=== PATIENT | female | born 1955 | race Caucasian/White ===

== ENCOUNTER → 2016-04-09 | Outpatient (CLI) | payer BC ==
[~2016-04-09] MED LIST: ACET325T96 PO; ASMIN/30 INH; ASPI81TA28 PO; CLOP1TAB15 PO; COEN1CAP7 PO; CYAN10005 PO; IBUP-103 PO; METO-217 PO; NTRGSL/4 UT; PANT40TA PO; ROSU40TA PO; SERT100T PO
== END | disposition home or self-care (01) ==
LOC: C.RC 16:28
PROVIDERS: ATTEND Internal Medicine Pulmonary Disease
DX: G47.33 Obstructive sleep apnea (adult) (pediatric) (principal)

== ENCOUNTER → 2016-05-03 | Outpatient (CLI) | payer BC, OTHER ==
[2016-05-03 13:31] LABS: HEMATOCRIT 41.6 % (37-47); MEAN CELL VOLUME 81.7 fL (80-100); MEAN CORPUSCULAR HEMOGLOBIN 25.7 pg (25-34); MEAN CORPUSCULAR HGB CONC 31.5 g/dl (32-36); MEAN PLATELET VOLUME 10.5 fL (7.4-10.4); PLATELET COUNT 288 K/uL (130-400); RED BLOOD COUNT 5.09 M/uL (4.2-5.4)
[2016-05-03 13:42] LABS: ALT/SGPT 23 U/L (12-78); BLOOD UREA NITROGEN 19 mg/dl (7-18); BUN/CREATININE RATIO 25.3 (10-20); CALCIUM 9.1 mg/dl (8.5-10.1); CARBON DIOXIDE 28 mmol/L (21-32); CHLORIDE 105 mmol/L (98-107); CREATININE 0.76 mg/dl (0.60-1.20); GLUCOSE 94 mg/dl (70-99); POTASSIUM 4.2 mmol/L (3.5-5.1); SODIUM 141 mmol/L (136-145)
[2016-05-03 13:45] LABS: ALB/GLOB RATIO 0.9 (0.9-2); ALKALINE PHOSPHATASE 64 U/L (45-117); AST/SGOT 14 U/L (15-37); CHOLESTEROL 137 mg/dl (0-200); CHOLESTEROL/HDL RATIO 2.5; HDL CHOLESTEROL 55 mg/dl; LDL CHOLESTEROL CALCULATED 61 mg/dl; TRIGLYCERIDES 107 mg/dl (0-150); VERY LOW DENSITY LIPOPROT CALC 21 mg/dl
== END | disposition home or self-care (01) ==
LOC: C.LABMFLN 09:10
PROVIDERS: ATTEND Internal Medicine Cardiovascular Disease
DX: I10 Essential (primary) hypertension (principal); E78.5 Hyperlipidemia, unspecified; I25.10 Atherosclerotic heart disease of native coronary artery without angina pectoris; E66.9 Obesity, unspecified

== ENCOUNTER → 2016-11-20 | Outpatient (CLI) | payer BC ==
[2016-11-20 12:07] LABS: BASO % 0.3 %; BASO ABS # 0.02 K/uL (0-0.2); COMPLETE YES; EOS % 1.6 %; IG% 0.4 %; LYMPH % 24.7 %; LYMPH ABS # 1.67 K/uL (1.2-3.4); MEAN CELL VOLUME 83.2 fL (80-100); MEAN CORPUSCULAR HEMOGLOBIN 25.7 pg (25-34); MEAN PLATELET VOLUME 10.2 fL (7.4-10.4); MONO % 5.5 %; NEUT % 67.5 %; PLATELET COUNT 258 K/uL (130-400); RED BLOOD COUNT 5.05 M/uL (4.2-5.4); WHITE BLOOD COUNT 6.76 K/uL (4.8-10.8)
[2016-11-20 12:20] LABS: ESTIMATED AVERAGE GLUCOSE 126 mg/dl; HA1C FLAG Normal (Normal)
[2016-11-20 12:27] LABS: ALT/SGPT 27 U/L (12-78); AST/SGOT 16 U/L (15-37); BLOOD UREA NITROGEN 17 mg/dl (7-18); CALCIUM 9.3 mg/dl (8.5-10.1); CARBON DIOXIDE 31 mmol/L (21-32); CHLORIDE 104 mmol/L (98-107); CHOLESTEROL 152 mg/dl (0-200); CREATININE 0.75 mg/dl (0.60-1.20); GLUCOSE 106 mg/dl (70-99); POTASSIUM 4.4 mmol/L (3.5-5.1); SODIUM 138 mmol/L (136-145)
[2016-11-20 12:30] LABS: CHOLESTEROL/HDL RATIO 2.6; HDL CHOLESTEROL 58 mg/dl; LDL CHOLESTEROL CALCULATED 63 mg/dl; TRIGLYCERIDES 157 mg/dl (0-150); VERY LOW DENSITY LIPOPROT CALC 31 mg/dl
== END | disposition home or self-care (01) ==
LOC: C.LAB1850 10:30
PROVIDERS: ATTEND Physician Assistant
DX: I10 Essential (primary) hypertension (principal); E78.5 Hyperlipidemia, unspecified; E66.9 Obesity, unspecified

== ENCOUNTER → 2016-12-07 | Outpatient (CLI) | payer BC ==
[2016-12-07] VITALS (8 sets, daily range): BP systolic 119–160; BP diastolic 46–75; PULSE 58–68; TEMP 36.4; O2SAT 95–98; Ht 165.1 cm; Wt 136.5 kg
[~2016-12-07] VITALS: Ht 165.1 cm; Wt 136.5 kg
[~2016-12-07] MED LIST changes: +FENTANYL CITRATE INJ 50 MCG/1 ML 2 ML VIAL ONE; +MIDAZOLAM HCL 1 MG/ML 2ML VIAL ONE
--- NOTE | 2016-12-07 08:30 | History & Physical Bridge Note ---
H&P Re-Evaluation Bridge Note: I have examined the patient, reviewed the History & Physical and in the interval since the performance of the History & Physical I have noted the following changes of clinical significance: No changes noted
--- NOTE | 2016-12-07 08:31 | Procedure Note ---
Pre-Mod Sedation Assessment General Date of Moderate Sedation: Dec 07, 2016. Vital Signs: Vital Signs Past 12 Hours Date Time Temp Pulse Resp B/P (MAP) Pulse Ox O2 Delivery O2 Flow Rate FiO2 12/07/16 08:06 36.4 62 16 136/60 96 Room Air Review Cardiovascular: regular rate, rhythm Abdomen: soft Lungs: lungs clear Pre-Sedation Airway Assessment Oral Cavity: WNL Short Thick Neck: Yes Smoking Status: Never Smoker Procedure Planning Contraindications-for Mod Sed: None Yes Notes The planned sedation has been discussed with the patient and consent obtained. I have identified the patient, determined the appropriateness of sedation and have assessed the patient immediately prior to the procedure. All medicine(s) and interventions are by my order.
--- NOTE | 2016-12-07 09:14 | Procedure Note ---
Post-Mod Sedation Assessment General Date of Moderate Sedation Dec 07, 2016. Vital Signs: Vital Signs Past 12 Hours Date Time Temp Pulse Resp B/P (MAP) Pulse Ox O2 Delivery O2 Flow Rate FiO2 12/07/16 09:00 68 16 126/75 96 Room Air 12/07/16 08:55 62 16 138/52 97 Nasal Cannula 6 12/07/16 08:50 64 16 146/49 95 Nasal Cannula 6 12/07/16 08:45 60 16 154/70 95 Nasal Cannula 6 12/07/16 08:40 58 16 119/46 95 Nasal Cannula 6 12/07/16 08:39 58 16 160/58 98 Nasal Cannula 6 12/07/16 08:06 36.4 62 16 136/60 96 Room Air Review - Discharge Criteria Vital Signs Stable: Yes Alert/Oriented/Conversant: Yes Returned to Baseline Mental St: Yes Nausea Absent/Minimal: Yes Pain/Discomfort/Absent/Minimal: Yes Normal/Baseline Respirations: Yes Active Bleeding?: No
--- NOTE | 2016-12-07 09:19 | Cardiology Procedure Brief Nt ---
Preliminary Cardiology Note Procedure Date Dec 07, 2016. Pre-Procedure Diagnosis cardiac mass Post-Procedure Diagnosis same Procedure(s) Performed AIDE Adhesion Tester Emely Relay Telegrapher(s) Stephy Estimated Blood Loss none Preliminary Findings See full echo report to follow after formal review. Prelim findings: 1. 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 Recommendations cardiac MRI recommended Specimens none Complication(s) None Disposition
--- NOTE | 2016-12-07 09:23 | Discharge Instructions ---
Discharge Instructions Date of Service Dec 07, 2016. Visit Reason for Visit: Cardiac Mass Discharge Discharge Diagnosis / Problem: Cardiac mass Discharge Goals Goal(s): Diagnostic testing Medications Restart Stopped Medication(s): Resume usual medications today. Activity Recommendations Activity Limitations: per Instructions/Follow-up section Anesthesia . Post Anesthesia Instructions: If you have had General Anesthesia or IV Sedation: * Do not drive today. * Resume driving when surgeon permits. * Do not make important decisions or sign legal documents today. * Call surgeon for: 1. Temperature elevations greater than 101 degrees F. 2. Uncontrollable pain. 3. Excessive bleeding. 4. Persistent nausea and vomiting. 5. Medication intolerance (nausea, vomiting or rash). * For nausea and vomiting use only clear liquids such as: tea, soda, bouillon until nausea subsides, then gradually increase diet as tolerated. * If you have any concerns or questions, call your surgeon's office. If physician is unavailable and it is an emergency, call 911 or go to the nearest emergency room. . Instructions / Follow-Up Instructions / Follow-Up ACTIVITY RECOMMENDATIONS: Resume activities as tolerated with no limitations unless specified. __ No lifting over _10_ pounds for 24 hours. __ Do not engage in vigorous exercise, sexual activity, or sports for 24 hours. __ Do not drive or operate any motorized equipment for 24 hours. __ You may return to work/school tomorrow. __ Nothing to eat or drink until gag reflex returns. __ No HOT or WARM liquids for __ hours. __ Avoid "scratchy" foods such as potato chips or pretzels for 24 hours following procedure. SPECIAL CARE: If you experience coughing up or vomiting of blood, contact Diet Recommendations Recommended Home Diet: resume previous diet Procedures Procedures Performed: Transesophageal echocardiogram Pending Studies Studies pending at discharge: yes List of pending studies: Cardiac MRI is being arranged for you through Dr. Han's office. You will be notified of time/date/location of appointment. Medical Emergencies . Who to Call and When: Medical Emergencies: If at any time you feel your situation is an emergency, please call 911 immediately. . Non-Emergent Contact Non-Emergency issues call your: Vibratory Pile Driver . . "Provider Documentation" section prepared by Baldev Geiger. .
--- NOTE | 2016-12-07 19:30 | TEE ---
*NOTICE TO RECEIVING [employer] AGENCY This information is strictly Confidential and protected under [place] law. [place] law prohibits you from making any further disclosure of this information unless further disclosure is expressly permitted by the written consent of the person to whom it pertains or is authorized by law. A general authorization for the release of medical or other information is not sufficient for this purpose. Hospital accepts no responsibility if the information is made available to any other person, INCLUDING THE PATIENT. Interpretation Summary * Name: LAMINE CONTRERAS Study Date: 12/07/2016 08:34 AM BP: 136/60 mmHg * Patient Location: [facility] HR: 66 * : 1955 (M/d/yyyy) Gender: Female Height: 65 in * Age: 61 yrs Ethnicity: [place] Weight: 300 lb * Ordering Physician: Baldev Han MD * Performed By: Jayde Higgins RDCS * * Reason For Study: Cardiac mass * BSA: 2.4 m2 * -- Conclusions -- * 1. Normal left ventricular size and systolic function. Estimated EF 60-65%. No significant left ventricular hypertrophy. No regional wall motion abnormalities. * 2. The left atrium is mildly dilated. * 3. There is a large (approximately 2.7 x 2.6 cm), well-circumscribed spherical mass involving the posterior annulus of the mitral valve. It appears to involve the posterior annulus and the posterior mitral leaflet is not well visualized. It appears to be immobile and homogeneous. * 4. There is mild mitral regurgitation. * 5. Compared to transthoracic study on 01/17/2014, the above described mass is slightly larger in size, but much better visualized currently. It measured approximately 2.4 x 2.4 cm that time. Patient tolerated procedure well without known complication. Procedure Details * The transesophageal portion of this study was personally supervised by the undersigned interpreting physician. * The study was performed in Cardiopulmonary Department. * Time out was conducted by the physician, nurse, and endoscope technician with positive identification of patient and procedure. * Informed consent for Transesophageal Echocardiogram was obtained prior to the procedure. * An intravenous line was placed. A topical anesthetic agent was used for oropharangeal anesthesia. A bite block was inserted. * The patient's vital signs, including blood pressure, heart rate, pulse oximetry and cardiac rhythm were monitored throughout the procedure . * Fentanyl 150 mcg was administered for procedural sedation. * Midazolam 3 mg administered for sedation. * The posterior oropharynx was anesthetized using a topical anesthetic spray. A bite guard was inserted. * A multifrequency, multiplane transesopheageal echocardiographic endoscope was inserted and manipulated in the standard fashion to achieve multiplane views. * The transesophageal probe was passed without difficulty. * The usual views were obtained; basal, mid-esophageal, transgastric and aortic views. * The patient tolerated the procedure well without evidence of orophangeal or esophageal trauma. * A 2D transesophageal echocardiogram with spectral and color flow Doppler was performed. * Probe #3 utilized for procedure. Sedation: Start time 08:35. End time 09:00 Left Ventricle * Normal left ventricular size and systolic function. Estimated EF 60-65%. No significant left ventricular hypertrophy. No regional wall motion abnormalities. Right Ventricle * The right ventricle is normal in size and function. Atria * The left atrium is mildly dilated. * No thrombus is detected in the left atrial appendage. * Right atrial size is normal. * No visualized ASD or PFO via 2D imaging or color Doppler. Mitral Valve * There is a large (approximately 2.7 x 2.6 cm), well-circumscribed spherical mass involving the posterior annulus of the mitral valve. It appears to involve the posterior annulus and the posterior mitral leaflet is not well visualized. It appears to be immobile and homogeneous. * No significant mitral valve stenosis. * There is mild mitral regurgitation. Tricuspid Valve * The tricuspid valve anatomy is normal. * There is no tricuspid stenosis. * There is trace tricuspid regurgitation. Aortic Valve * The aortic valve is trileaflet. * The aortic valve opens well. * No aortic regurgitation is present. Pulmonic Valve * The pulmonic valve is not well visualized. * There is no significant pulmonary regurgitation. Great Vessels * The aortic root is normal size. * Mild atherosclerosis in the visualized portions of thoracic aorta. * Normal pulmonary venous flow pattern. Pericardium * There is no pericardial effusion. MMode 2D Measurements and Calculations Ao root diam 2.7 cm Ao root area 5.9 cm\S\2 asc Aorta Diam 3.3 cm Doppler Measurements and Calculations MV E max сергей 154.5 cm/sec MV A max сергей 132.8 cm/sec MV E/A 1.2 MV V2 max 149.5 cm/sec MV max PG 8.9 mmHg MV V2 mean 86.3 cm/sec MV mean PG 3.5 mmHg MV V2 VTI 37.1 cm MV P1/2t max сергей 153.0 cm/sec MV P1/2t 56.1 msec MVA(P1/2t) 3.9 cm\S\2 MV dec slope 799.0 cm/sec\S\2 MV dec time 0.22 sec TR max сергей 264.8 cm/sec
== END | disposition home or self-care (01) ==
LOC: C.CPL 07:26
PROVIDERS: ATTEND Internal Medicine Cardiovascular Disease
DX: I51.89 Other ill-defined heart diseases (principal)

== ENCOUNTER → 2017-07-04 | Outpatient (CLI) | payer BC ==
[~2017-07-04] MED LIST changes: +ACET-1693 PO; -ACET325T96 PO; -ASMIN/30 INH; -FENTANYL CITRATE INJ 50 MCG/1 ML 2 ML VIAL ONE; -MIDAZOLAM HCL 1 MG/ML 2ML VIAL ONE; -PANT40TA PO
--- NOTE | 2017-07-04 19:34 | DIAGNOSTIC IMAGING REPORT ---
ABD/PELVIS IV AND ORAL CONT CLINICAL HISTORY: 62 years-old Female presenting with RT LOWER QUAD Pain, appy VS DIVERTICULITIS. TECHNIQUE: Multidetector CT of the abdomen and pelvis was performed after the administration of intravenous contrast. IV contrast: 117 mL of Optiray 320. A dose lowering technique was used consistent with the principles of ALARA (as low as reasonably achievable). COMPARISON: None. CT DOSE (mGy.cm): The estimated cumulative dose is 1729.51 mGy.cm. FINDINGS: Security Public Safety Officer topogram: Unremarkable. Lung bases: Mosaic attenuation could suggest small airways disease. Coronary artery calcification. The degree of calcification of the mitral annulus greater than what is normally expected for mitral annular calcification. Normal heart size. No pericardial or pleural effusion. Liver: Normal morphology. No liver lesion. Patent hepatic vasculature. Biliary: No intrahepatic or extrahepatic biliary ductal dilatation. Normal gallbladder. Pancreas: Moderate parenchymal atrophy. Spleen: Mildly enlarged measuring slightly more than 13 cm in maximal sagittal dimension. Adrenal glands: Normal. Kidneys and ureters: Normal. No hydronephrosis. Bladder: Incompletely evaluated secondary to underdistention. Pelvic organs: Uterus and ovaries normal. Bowel: Focal wall thickening and pericolonic fat infiltration at the mid sigmoid colon. Limited diverticulosis of the sigmoid colon. The appendix is normal. No bowel obstruction. Peritoneal cavity: No free fluid or intraperitoneal gas. No focal fluid collection. No extraluminal gas adjacent to the sigmoid colon. Lymph nodes: No enlarged lymph nodes in the abdomen or pelvis. Vasculature: Atherosclerosis of the normal caliber abdominal aorta. IVC patent. Abdominal wall: Normal. Musculoskeletal: Degenerative changes of the spine. IMPRESSION: 1. Findings most suggestive of acute uncomplicated diverticulitis of the sigmoid colon. However, the limited degree of diverticula burden in the sigmoid colon is somewhat atypical. Follow-up colonoscopy after diverticulitis treatment recommended to exclude underlying neoplasm. No lymphadenopathy or other evidence to suggest this alternate diagnosis. No manuela CT evidence of perforation or abscess. 2. Mild splenomegaly. 3. Abnormal degree of calcification of the mitral annulus. Further evaluation with dedicated nonurgent echocardiogram recommended. The report will be called/faxed according to standard departmental protocol. Electronically signed by: Rey Nolasco M.D. 07/04/2017 7:33 PM Dictated Date/Time: 07/04/2017 7:27 PM
== END | disposition home or self-care (01) ==
LOC: C.CTS 17:03
PROVIDERS: ATTEND Family Medicine
DX: R10.31 Right lower quadrant pain (principal)

== ENCOUNTER 2017-07-30 20:04 | Emergency (ER) | payer BC ==
[~2017-07-30] VITALS: Ht 165.1 cm; Wt 133.9 kg
[2017-07-30 20:24] VITALS: TEMP 37.4; Ht 165.1 cm; Wt 133.9 kg
[2017-07-30] MEDS ORDERED: SODIUM CHLORIDE 0.9% 1000ML 1,000 ML IV ONE (20:44)
[2017-07-30] MEDS ORDERED: ONDANSETRON INJ 2 MG/ML 2 ML VIAL IV STA ×2 (20:44→21:53)
[2017-07-30] MEDS ORDERED: SODIUM CHLORIDE 0.9% 1000ML 1,000 ML IV STA (20:44)
[2017-07-30 21:15] LABS: HEMATOCRIT 37.5 % (37-47); HEMOGLOBIN 12.3 g/dL (12.0-16.0); IG# 0.02 K/uL (0.00-0.02); LYMPH % 10.7 %; LYMPH ABS # 0.65 K/uL (1.2-3.4); MEAN CELL VOLUME 78.6 fL (80-100); MEAN CORPUSCULAR HEMOGLOBIN 25.8 pg (25-34); MEAN CORPUSCULAR HGB CONC 32.8 g/dl (32-36); MEAN PLATELET VOLUME 10.3 fL (7.4-10.4); MONO % 8.3 %; NEUT % 80.7 %; NEUT ABS # 4.88 K/uL (1.4-6.5); PLATELET COUNT 239 K/uL (130-400); RED CELL DISTRIBUTION WIDTH CV 15.5 % (11.5-14.5); RED CELL DISTRIBUTION WIDTH SD 45.1 fL (36.4-46.3); WHITE BLOOD COUNT 6.05 K/uL (4.8-10.8)
[2017-07-30] MEDS ORDERED: TYLOTC500 PO (21:34)
[2017-07-30] MEDS ORDERED: ZLF/100 PO (21:34)
[2017-07-30] MEDS ORDERED: PLV75 PO (21:34)
[2017-07-30] MEDS ORDERED: TPRSR/50 PO (21:34)
[2017-07-30 21:37] LABS: ALBUMIN 3.6 gm/dl (3.4-5.0); CALCIUM 9.1 mg/dl (8.5-10.1); CREATININE 0.85 mg/dl (0.60-1.20); POTASSIUM 3.5 mmol/L (3.5-5.1)
--- NOTE | 2017-07-30 21:38 | EMERGENCY ROOM VISIT NOTE ---
History Report prepared by Julio C: Dione Kimble Under the Supervision of: Dr. Ar Gonzalez M.D. First contact with patient: 20:35 Chief Complaint: NAUSEA Stated Complaint: NAUSEA,VOMITING, DIARRHEA,STOMACH PAIN History of Present Illness The patient is a 62 year old female who presents to the Emergency Room with complaints of persistent vomiting starting 2300 last night. The patient was sent here after being seen by her PCP. She has had nausea, vomiting, and diarrhea since 2300 last night. She notes that she ate unhealthy foods last night. She reports subjective fever and chills. She is having upper abdominal pain. She has had an intermittent headache since last night. She has felt more SOB with going up the stairs recently. She denies any chest pain or blood in the stool. She denies any sick contacts or recent travel. She was on antibiotics for diverticulitis several weeks ago. She has a stent in her heart. She is on Plavix. She denies any history of diabetes or C diff. She still has her gallbladder. She denies any alcohol or smoking. She denies any recent injuries. Source of History: patient Onset: 2300 last night Position: abdomen Quality: other (vomiting) Timing: other (persistent) Associated Symptoms: + fevers, + chills, + headache, + SOB, + nausea, + abdominal pain, + diarrhea, No chest pain, No hematochezia Review of Systems See HPI for pertinent positives & negatives. A total of 10 systems reviewed and were otherwise negative. Past Medical & Surgical Medical Problems: (1) Coronary Atherosclerosis Of [place] Coronary Vessel (2) Esophageal Reflux (3) Hyperlipidemia Nec/Nos (4) Hypertension Nos (5) Obesity, Nos Surgical Problems: (1) Stented coronary artery Old medical records were reviewed. Nurse's notes were reviewed and I agree with. Family History Diabetes mellitus FH: heart disease FHx: cancer FHx: gallbladder disease Hypertension Social History Smoking Status: Never Smoker Alcohol Use: none Marital Status: Occupation Status: employed Current/Historical Medications Scheduled Aspirin (Aspirin Ec), 81 MG PO QAM Clopidogrel Bisulfate (Clopidogrel), 75 MG PO QAM Coenzyme Q10 (Ubidecarenone) (Coq10), 200 MG PO DAILY Cyanocobalamin (Vitamin B-12), 1,000 MCG PO DAILY Metoprolol Succinate (Metoprolol Succinate ER), 50 MG PO QAM Rosuvastatin Calcium (Crestor), 40 MG PO QPM Sertraline HCl (Sertraline HCl), 200 MG PO QAM Scheduled PRN Acetaminophen (Tylenol), 1,000 MG PO Q6H PRN for Pain or Fever Nitroglycerin (Nitrostat), 0.4 MG UT UD PRN for Chest Pain Allergies Coded Allergies: Ciprofloxacin (Verified Allergy, Intermediate, HIVES, 07/30/17) Metronidazole (Verified Allergy, Intermediate, Itchiness of fingers and toes, 07/30/17) Sulfamethoxazole w/Trimethoprim (Verified Allergy, Intermediate, Itchiness ,hives and swelling, 07/30/17) Sulfa Antibiotics (Verified Allergy, Mild, Rash, hives, 07/30/17) Chloramphenicol (Verified Allergy, Unknown, UNKNOWN, 07/30/17) Lisinopril (Verified Allergy, Unknown, rash, 07/30/17) Penicillins (Verified Allergy, Unknown, hives, 07/30/17) Physical Exam Vital Signs Date Time Temp Pulse Resp B/P (MAP) Pulse Ox O2 Delivery O2 Flow Rate FiO2 07/30/17 22:48 83 16 153/70 93 07/30/17 22:33 83 16 153/70 93 Room Air 07/30/17 21:59 82 18 129/70 93 Room Air 07/30/17 20:24 37.4 90 22 170/76 95 Room Air Physical Exam General: Non-ill appearing middle age female complaining of feeling nauseated, no respiratory distress. HEENT: Normal cephalic atraumatic. Pupils are equal round and reactive to light. Extraocular movements are intact. Oropharynx is pink with moist mucous membranes. No swelling of the mouth lips or tongue. Neck: Supple with a midline trachea. No meningeal signs or stiffness, no JVD or bruits. No Stridor. Chest: Clear to auscultation bilaterally. No wheezes or rhonchi. No increased work of breathing. Heart: regular rate and rhythm. Abdomen: Soft, minimal tenderness in the epigastric area, no lower abdominal tenderness, nondistended without rebound guarding or rigidity. Extremities: No cyanosis clubbing or edema. No calf tenderness or assymetry Spine/Back. Non tender to palpation. No CVA tenderness Skin: Good turgor without rashes. Neurologic exam: Cranial nerves two through 12 are intact. Motor and sensation are intact and symmetrical throughout. Medical Decision & Procedures ER Provider Diagnostic Interpretation: X-ray results as stated below per interpretation by me and the radiologist: CHEST ONE VIEW PORTABLE HISTORY: 62 years-old Female CHEST PAIN acute atypical chest pain COMPARISON: Chest radiographs 05/01/2015, 03/03/2014, CT 07/04/2017, CTA chest 01/16/2014 TECHNIQUE: Portable AP view of the chest FINDINGS: Cardiac silhouette is mildly enlarged. Prominence of the pulmonary arteries likely accounts for the elongated retrocardiac opacity which appears unchanged from prior study. No pneumothorax or pleural effusion. There is mild perivascular congestion with unchanged linear subsegmental atelectasis/scarring of the perihilar distributions and lung bases. No overt pulmonary edema. The bones of the chest appear grossly intact. IMPRESSION: Cardiomegaly with mild pulmonary vascular congestion. The above report was generated using voice recognition software. It may contain grammatical, syntax or spelling errors. Electronically signed by: Gigi Gamez M.D. 07/30/2017 10:17 PM Dictated Date/Time: 07/30/2017 10:14 PM Laboratory Results 07/30/17 21:00 Red Blood Count 4.77, Mean Corpuscular Volume 78.6, Mean Corpuscular Hemoglobin 25.8, Mean Corpuscular Hemoglobin Concent 32.8, Mean Platelet Volume 10.3, Neutrophils (%) (Auto) 80.7, Lymphocytes (%) (Auto) 10.7, Monocytes (%) (Auto) 8.3, Eosinophils (%) (Auto) 0.0, Basophils (%) (Auto) 0.0, Neutrophils # (Auto) 4.88, Lymphocytes # (Auto) 0.65, Monocytes # (Auto) 0.50, Eosinophils # (Auto) 0.00, Basophils # (Auto) 0.00 07/30/17 21:00 Test 07/30/17 21:00 07/30/17 21:07 White Blood Count 6.05 K/uL (4.8-10.8) Red Blood Count 4.77 M/uL (4.2-5.4) Hemoglobin 12.3 g/dL (12.0-16.0) Hematocrit 37.5 % (37-47) Mean Corpuscular Volume 78.6 fL (80-100) Mean Corpuscular Hemoglobin 25.8 pg (25-34) Mean Corpuscular Hemoglobin Concent 32.8 g/dl (32-36) Platelet Count 239 K/uL (130-400) Mean Platelet Volume 10.3 fL (7.4-10.4) Neutrophils (%) (Auto) 80.7 % Lymphocytes (%) (Auto) 10.7 % Monocytes (%) (Auto) 8.3 % Eosinophils (%) (Auto) 0.0 % Basophils (%) (Auto) 0.0 % Neutrophils # (Auto) 4.88 K/uL (1.4-6.5) Lymphocytes # (Auto) 0.65 K/uL (1.2-3.4) Monocytes # (Auto) 0.50 K/uL (0.11-0.59) Eosinophils # (Auto) 0.00 K/uL (0-0.5) Basophils # (Auto) 0.00 K/uL (0-0.2) RDW Standard Deviation 45.1 fL (36.4-46.3) RDW Coefficient of Variation 15.5 % (11.5-14.5) Immature Granulocyte % (Auto) 0.3 % Immature Granulocyte # (Auto) 0.02 K/uL (0.00-0.02) Anion Gap 7.0 mmol/L (3-11) Est Creatinine Clear Calc Drug Dose 96.3 ml/min Estimated GFR () 85.7 Estimated GFR (Non- 74.0 BUN/Creatinine Ratio 12.5 (10-20) Calcium Level 9.1 mg/dl (8.5-10.1) Total Bilirubin 0.8 mg/dl (0.2-1) Direct Bilirubin 0.2 mg/dl (0-0.2) Aspartate Amino Transf (AST/SGOT) 19 U/L (15-37) Alanine Aminotransferase (ALT/SGPT) 27 U/L (12-78) Alkaline Phosphatase 66 U/L (45-117) Total Protein 7.6 gm/dl (6.4-8.2) Albumin 3.6 gm/dl (3.4-5.0) Lipase 92 U/L (73-393) Bedside Troponin I < 0.030 ng/ml (0-0.045) Laboratory studies as stated above per my review. Medications Administered Medications (Trade) Dose Ordered Sig/Jonah Route Start Time Stop Time Status Last Admin Dose Admin Sodium Chloride 1,000 ml @ 999 mls/hr Q1H1M STAT IV 07/30/17 20:44 07/30/17 21:44 DC 07/30/17 21:02 999 MLS/HR Sodium Chloride 1,000 ml @ 150 mls/hr Q6H40M ONCE IV 07/30/17 20:44 07/30/17 23:29 DC 07/30/17 21:02 150 MLS/HR Ondansetron HCl (Zofran Inj) 4 mg NOW STAT IV 07/30/17 20:44 07/30/17 20:45 DC 07/30/17 21:02 4 MG Ondansetron HCl (Zofran Inj) 4 mg NOW STAT IV 07/30/17 21:53 07/30/17 21:54 DC 07/30/17 21:58 4 MG Ondansetron HCl (ZOFRAN ODT 4MG Home Pack) 1 homepack UD ONCE PO 07/30/17 22:45 07/30/17 22:46 DC 07/30/17 22:44 1 HOMEPACK ECG Per My Interpretation Indication: SOB/dyspnea Rate (beats per minute): 83 Rhythm: normal sinus Findings: no acute ischemic change, no ectopy, other (nonspecific T wave abnormality lateral) Comparison ECG Date: 20-Jan-2014 Change: Nonspecific T wave abnormality now present. ED Course 2035: Past medical records reviewed. The patient was evaluated in room A11B, and a complete history and physical examination were performed. 2043: Zofran Inj 4 mg IV, Sodium Chloride 1000 ml @ 150 mls/hr IV, Sodium Chloride 1000 ml @ 999 mls/hr IV. 2115: I reevaluated the patient. She seems comfortable. She just received Zofran. 2152: Zofran Inj 4 mg IV. 2232: Upon reevaluation, the patient is feeling better. I discussed the results and treatment plan with her. She verbalized agreement of the treatment plan. The patient was discharged home. 2244: Zofran Odt 4 mg 1 homepack PO. Medical Decision Differentials include, but are not limited to; gastroenteritis, cardiac disease , pancreatitis, colitis, electrolyte or metabolic abnormality, infection, C diff. This patient comes in as described above. She was placed in room A11. She is here for treatment and evaluation of nausea, vomiting, and diarrhea. She was seen by her primary care doctor's office and they sent her over here given her cardiac history .she has had no chest pain or shortness of breath. We did an EKG here which shows no definite ischemic changes. Her troponin is not elevated. Her symptoms would be atypical for cardiac disease and given the normal troponin and I do not think is likely cardiac. IV access was established was hydrated with 1 L IV normal saline bolus. Chest x-ray was obtained as well as multiple blood testing. She is also given Zofran 4 mg IV. She was reassessed frequently. She is feeling significant better. Chest x-ray was unremarkable. She has no white count or fever to suggest infection. She has nothing she has liver gallbladder pancreas disease. Her discomfort is been more in the epigastric area and I do not think is likely related to diverticulitis. Her abdomen is benign without surgical signs. She is feeling better would like to go home. I think most likely this is GI related as she has had nausea vomiting diarrhea may be more of a gastroenteritis. She has a negative C. difficile study. She can use Zofran and/or Imodium if needed for nausea or vomiting. I encouraged to return if: she has increasing pain, worsening of symptoms, fever or chills, any new problems or concerns. She is happy the plan and discharged to home. She should follow-up with her regular doctor next 1 to 2 days for recheck. Medication Reconcilliation Current Medication List: was personally reviewed by me Blood Pressure Screening Patient's blood pressure: Elevated blood pressure Blood pressure disposition: Referred to PCP Impression Primary Impression: Nausea vomiting and diarrhea Additional Impression: Epigastric abdominal pain Scribe Attestation The scribe's documentation has been prepared under my direction and personally reviewed by me in its entirety. I confirm that the note above accurately reflects all work, treatment, procedures, and medical decision making performed by me. Departure Information Dispostion Home / Self-Care Referrals Alexy Venegas D.O. (PCP) Forms HOME CARE DOCUMENTATION FORM, IMPORTANT VISIT INFORMATION Patient Instructions My [facility] Additional Instructions Rest. Drink plenty of fluids. Use Zofran every 6 hours if needed for nausea or vomiting Use [id number] Imodium if needed for diarrhea Return if: worsening of symptoms, fever or chills, any new problems or concerns Follow-up with your doctor in 1-2 days for recheck Problem Qualifiers
[2017-07-30 21:40] LABS: TOTAL PROTEIN 7.6 gm/dl (6.4-8.2)
--- NOTE | 2017-07-30 22:18 | DIAGNOSTIC IMAGING REPORT ---
CHEST ONE VIEW PORTABLE HISTORY: 62 years-old Female CHEST PAIN acute atypical chest pain COMPARISON: Chest radiographs 05/01/2015, 03/03/2014, CT 07/04/2017, CTA chest 01/16/2014 TECHNIQUE: Portable AP view of the chest FINDINGS: Cardiac silhouette is mildly enlarged. Prominence of the pulmonary arteries likely accounts for the elongated retrocardiac opacity which appears unchanged from prior study. No pneumothorax or pleural effusion. There is mild perivascular congestion with unchanged linear subsegmental atelectasis/scarring of the perihilar distributions and lung bases. No overt pulmonary edema. The bones of the chest appear grossly intact. IMPRESSION: Cardiomegaly with mild pulmonary vascular congestion. The above report was generated using voice recognition software. It may contain grammatical, syntax or spelling errors. Electronically signed by: Gigi Gamez M.D. 07/30/2017 10:17 PM Dictated Date/Time: 07/30/2017 10:14 PM
[2017-07-30] MEDS ORDERED: ONDANSETRON HOME PACK 4MG OD TAB PO ONE (22:45)
[2017-07-30 22:48] VITALS: BP 153/70; PULSE 83; O2SAT 93
== END 2017-07-30 22:47 | disposition home or self-care (01) ==
LOC: C.EDB 20:05 → C.EDA 22:47
DX: R11.2 Nausea with vomiting, unspecified (principal); R19.7 Diarrhea, unspecified; R10.13 Epigastric pain; I25.10 Atherosclerotic heart disease of native coronary artery without angina pectoris; K21.9 Gastro-esophageal reflux disease without esophagitis; E78.5 Hyperlipidemia, unspecified; I10 Essential (primary) hypertension; Z79.82 Long term (current) use of aspirin; Z79.02 Long term (current) use of antithrombotics/antiplatelets; Z79.899 Other long term (current) drug therapy; Z88.2 Allergy status to sulfonamides; Z88.0 Allergy status to penicillin; Z88.1 Allergy status to other antibiotic agents; Z88.8 Allergy status to other drugs, medicaments and biological substances